=== PATIENT | male | born 1995 | race Caucasian/White ===

== ENCOUNTER 2018-01-08 07:53 | Emergency (ER) | payer OTHER ==
--- NOTE | 2018-01-08 08:06 | ED Physician Documentation ---
PD HPI CHEST PAIN - Stated complaint Stated Complaint: CHEST PX - History obtained from History obtained from: Patient - History of Present Illness Timing - onset: How many days ago (2) Timing - onset during: Rest Timing - duration: Seconds, Days Timing - details: Abrupt onset, Now resolved, Intermittant (gets sharp intermittent pains right chest without dyspnea, cough, injury.). No: Still present Quality: Sharp, Pain Improved by: No: Rest Worsened by: Movement. No: Inspiration, Palpation Associated symptoms: No: Shortness of air, Diaphoresis, Nausea, Feeling faint / dizzy, General Weakness Similar symptoms before: No diagnosis Recently seen: Not recently seen Review of Systems Constitutional: denies: Fever, Chills, Myalgias Nose: denies: Rhinorrhea / runny nose, Congestion Throat: denies: Sore throat Cardiac: reports: Chest pain / pressure. denies: Palpitations, Pedal edema, Calf pain Respiratory: denies: Dyspnea, Cough, Wheezing GI: denies: Abdominal Pain, Nausea, Vomiting, Diarrhea Skin: denies: Rash, Lesions PD PAST MEDICAL HISTORY - Past Medical History Cardiovascular: None Respiratory: None Neuro: None - Present Medications Home Medications: Ambulatory Orders Medication Instructions Recorded Confirmed Dexamethasone [Decadron] 4 mg PO DAILY #5 tablet 01/08/18 Ibuprofen [Motrin] 600 mg PO TID #30 tab 01/08/18 Tramadol HCl 50 mg PO Q6H PRN #20 tablet 01/08/18 - Allergies Allergies/Adverse Reactions: Allergies Allergy/AdvReac Type Severity Reaction Status Date / Time No Known Drug Allergies Allergy Verified 01/08/18 08:08 - Family History Family history: denies: CAD, Aortic aneursym, Aortic dissection PD ED PE NORMAL - Vitals Vital signs reviewed: Yes - General General: Alert and oriented X 3, No acute distress, Well developed/nourished - HEENT HEENT: Pharynx benign - Neck Neck: Supple, no meningeal sign, No adenopathy - Cardiac Cardiac: RRR, No murmur - Respiratory Respiratory: Clear bilaterally - Abdomen Abdomen: Soft, Non tender - Male Male : Deferred - Rectal Rectal: Deferred - Back Back: No CVA TTP - Derm Derm: Normal color, Warm and dry - Extremities Extremities: No deformity, No tenderness to palpate, Normal ROM s pain, No edema , No calf tenderness / cord - Neuro Neuro: Alert and oriented X 3, No motor deficit, Normal speech Results - Vitals Vitals: Oxygen O2 Source Room air - EKG (time done) 08:05 Rate: Rate (enter#) (74) Rhythm: NSR [place]: Normal Intervals: Normal [place] QRS: Normal Ischemia: Normal ST segments. No: ST elevation c/w ischemia, ST depression Compare to prior EKG: Old EKG unavailable - Rads (name of study) chest Radiology: Prelim report reviewed (no acute process) PD MEDICAL DECISION MAKING - ED course Complexity details: reviewed results, considered differential, d/w patient - Sepsis Event Vital Signs: Oxygen O2 Source Room air Departure - Departure Disposition: 01 Home, Self Care Clinical Impression: Right-sided chest pain Condition: Stable Record reviewed to determine appropriate education?: Yes Instructions: ED Chest Pain Pleurisy Follow-Up: [facility] Jesus [Provider Group] Prescriptions: Dexamethasone [Decadron] 4 mg PO DAILY #5 tablet Ibuprofen [Motrin] 600 mg PO TID #30 tab Tramadol HCl 50 mg PO Q6H PRN #20 tablet PRN Reason: Pain Comments: Your EKG and blood pressure and heart rhythm as well as your chest x-ray appear normal. I presume this is some inflammation around the lung or in the chest wall causing your symptoms. We will treated with 2 types of anti-inflammatories , ibuprofen and Decadron. Add Tylenol or tramadol if needed for pain. Rest with light activity for 2 days. Follow-up with your primary care in a couple of days if not better. Forms: Activity restrictions Discharge Date/Time: 01/08/18 09:38
[2018-01-08] MEDS ORDERED: IBUPROFEN 600 MG TABLET PO STA (08:20)
[2018-01-08] MEDS ORDERED: DEXAMETHASONE 10 MG/ML VIAL PO STA (08:21)
[2018-01-08] MEDS ORDERED: HYDROcod/ACETAM 5/325 MG TABLET PO STA (08:21)
--- NOTE | 2018-01-08 08:49 | XRAY Report ---
Reason: chest pain left sided Procedure Date: 01/08/2018 Accession Number: [id number] / [id number] Procedure: XR - Chest 2 View X-Ray CPT Code: 80142 FULL RESULT: EXAM: CHEST RADIOGRAPHY EXAM DATE: 01/08/2018 08:37 AM. CLINICAL HISTORY: Chest pain . COMPARISON: None. TECHNIQUE: 2 views. FINDINGS: Lungs/Pleura:Faint area increased density left lower chest, may be superimposition of structures but an early infiltrate is not exclued. No focal opacities evident. No pleural effusion. No pneumothorax. Normal volumes. Mediastinum: Heart and mediastinal contours are unremarkable. Other: Negative bony structures IMPRESSION: Faint area of increased density left lower chest may represent superimposition of structures but early infiltrate not excluded. Otherwise negative two-view chest x-ray. [facility]
[2018-01-08 09:37] VITALS: BP 132/61
== END 2018-01-08 09:38 | disposition home or self-care (01) ==
LOC: ED 07:53
DX: R07.9 Chest pain, unspecified (principal)
CPT/HCPCS: 71046; 93005; 99283; A9270